=== PATIENT | male | born 1975 | race Caucasian/White ===

== ENCOUNTER 2022-06-26 17:22 | Emergency (ER) | payer OTHER ==
[~2022-06-26] VITALS: Ht 180.3 cm; Wt 96.6 kg
[~2022-06-26 17:22] MED LIST: Monodox100 MG PO; Naprosyn500 MG PO; PROCODE120 PO; Prednisone20 MG PO; SULTRIDS PO; TRAM50 PO; Ultram50 MG PO; Ventolin Soln3 ML INH
[2022-06-26] MEDS ORDERED: Robaxin750 MG PO (17:49)
[2022-06-26] MEDS ORDERED: Norco 5-325 Ta1 EACH PO (17:49)
== END 2022-06-26 18:12 | disposition home or self-care (01) ==
LOC: ER 17:22
DX: M75.102 Unspecified rotator cuff tear or rupture of left shoulder, not specified as traumatic (principal); F17.200 Nicotine dependence, unspecified, uncomplicated
CPT/HCPCS: 99282